=== PATIENT | female | born 1995 ===

== ENCOUNTER 2019-08-19 12:33 | Outpatient (CLI) | payer OTHER | END 2019-08-19 13:45 | disposition home or self-care (01) | LOC: PRENATAL 12:33 | DX: O35.3XX0 Maternal care for (suspected) damage to fetus from viral disease in mother, not applicable or unspecified (principal) ==

== ENCOUNTER 2019-12-23 | Inpatient (IN) | payer OTHER ==
[~2019-12-23] VITALS: Ht 160 cm; Wt 64.9 kg
[2019-12-23] MEDS ORDERED: PRENATAL CAPLE1 EAC1 PO (22:42)
== END 2019-12-26 14:19 | disposition home or self-care (01) | DRG 807 ==
LOC: OB/GYN 22:10 → LDR 22:10 → OB/GYN 12-24 08:01
PROVIDERS: ADMIT Obstetrics & Gynecology
PROC: 10E0XZZ Delivery of Products of Conception, External Approach (ICD-10-PCS; principal; 2019-12-23)
PROC: 10907ZC Drainage of Amniotic Fluid, Therapeutic from Products of Conception, Via Natural or Artificial Opening (ICD-10-PCS; 2019-12-23)
PROC: 0W8NXZZ Division of Female Perineum, External Approach (ICD-10-PCS; 2019-12-23)
PROC: 3E033VJ Introduction of Other Hormone into Peripheral Vein, Percutaneous Approach (ICD-10-PCS; 2019-12-23)
PROC: 4A1HXCZ Monitoring of Products of Conception, Cardiac Rate, External Approach (ICD-10-PCS; 2019-12-23)
DX: O80 Encounter for full-term uncomplicated delivery (principal); Z37.0 Single live birth; Z3A.40 40 weeks gestation of pregnancy